=== PATIENT | male | born 1985 | race Caucasian/White ===

== ENCOUNTER 2018-06-21 18:51 | Emergency (ER) | payer OTHER ==
[2018-06-21 18:57] VITALS: RESP 18
[2018-06-21] MEDS ORDERED: LIDOCAINE 1% INJ 10MG/ML (20 ML MDV) SQ STA (19:01)
--- NOTE | 2018-06-21 19:18 | XR ---
EXAMINATION TYPE: XR hand complete LT DATE OF EXAM: 06/21/2018 COMPARISON: NONE HISTORY: Pain and lacerations TECHNIQUE: 3 views FINDINGS: Metacarpals are intact. I see no fracture nor dislocation. Joint spaces are normal. IMPRESSION: Normal left hand. No evidence of foreign body.
--- NOTE | 2018-06-21 19:54 | ED ---
General Adult HPI - General Chief complaint: Wound/Laceration Stated complaint: Laceration-[facility] Time Seen by Provider: 06/21/18 19:01 Source: patient, RN notes reviewed, old records reviewed Mode of arrival: ambulatory Limitations: no limitations - History of Present Illness Initial comments: 32-year-old male patient upper and past medical history presents to the sustaining a laceration at work. Patient reports that a glass broke cutting the palmar aspect of the left hand in the mid hand region. Patient denies any other complaints. Patient states that he has full range of motion in hand. Patient states that tetanus updated within last 2 years. Systemic: Pt denies fatigue, myalgia, fever/chills, rash. Pt denies weakness, night sweats, weight loss. Neuro: Pt denies headache, visual disturbances, syncope or pre-syncope. HEENT: Pt denies ocular discharge or irritation, otalgia, rhinorrhea, pharyngitis or notable lymphadenopathy. Cardiopulmonary: Pt denies chest pain, SOB, heart palpitations, dyspnea on exertion. Abdominal/GI: Pt denies abdominal pain, n/v/d. : Pt denies dysuria, burning w/ urination, frequency/urgency. Denies new onset urinary or bowel incontinence. MSK: Pt denies myalgia, loss of strength or function in extremities. Neuro: Pt denies new onset weakness, paresthesias. - Related Data Allergies Allergy/AdvReac Type Severity Reaction Status Date / Time No Known Allergies Allergy Verified 06/21/18 18:57 Review of Systems ROS Statement: Those systems with pertinent positive or pertinent negative responses have been documented in the HPI. ROS Other: All systems not noted in ROS Statement are negative. Past Medical History Additional Past Medical History / Comment(s): blood clot left leg 2 year ago History of Any Multi-Drug Resistant Organisms: None Reported Past Surgical History: No Surgical Hx Reported Past Psychological History: No Psychological Hx Reported Smoking Status: Current every day smoker Past Alcohol Use History: None Reported Past Drug Use History: None Reported General Exam - General Exam Comments Initial Comments: Constitutional: NAD, AOX3, Pt has pleasant affect. HEENT: NC/AT, trachea midline, neck supple, no lymphadenopathy. Posterior pharynx non erythematous, without exudates. External ears appear normal, without discharge. Mucous membranes moist. Eyes PERRLA, EOM intact. There is no scleral icterus. No pallor noted. Cardiopulmonary: RRR, no murmurs, rubs or gallops, no JVD noted. Lungs CTAB in anterior and posterior bowles. No peripheral edema. Abdominal exam: Abdomen soft and non-distended. Abdomen non-tender to palpation in all 4 quadrants. Bowel sounds active in LLQ. No hepatosplenomegaly. No ecchymosis Neuro: CN II-XII grossly intact. No nuchal rigidity. MSK: 3 cm laceration noted and palmar aspect of mid hand region of left hand. Full range of motion hand. Sensation intact. Wound approximated with 6 simple interrupted nylon sutures. Patient tired procedure well. Wound vigorously irrigated with 1 L normal saline. No osseous or ligamentous involvement. No foreign body. No posterior calf tenderness bilaterally, homans sign negative bilaterally. Posterior tibialis and radial pulse +2 bilaterally. Sensation intact in upper and lower extremities. Full active ROM in upper and lower extremities, 5/5 stregnth. Limitations: no limitations Course Vital Signs 06/21/18 18:54 Temperature 98.5 F Pulse Rate 123 H Respiratory 18 Rate Blood Pressure 145/55 O2 Sat by Pulse 99 Oximetry Procedures - Laceration Laceration #1 Consent Obtained: verbal consent Indication: laceration Site: hand (Left) Size (cm): 3 Description: linear Depth: simple, single layer Anesthetic Used: lidocaine 1% Anesthesia Technique: local infiltration Amount (mls): 4 Pre-repair: wound explored, irrigated extensively (1L NS ), deep structures intact (no ligamentous or osseous involvment, no foreign body) Type of Sutures: nylon Size of Sutures: 5-0 Number of Sutures: 6 Technique: simple, interrupted Patient Tolerated Procedure: well, no complications Medical Decision Making - Medical Decision Making 32-year-old male patient upper and past medical history presents to the sustaining a laceration at work. Patient reports that a glass broke cutting the palmar aspect of the left hand in the mid hand region. Patient denies any other complaints. Patient states that he has full range of motion in hand. Patient states that tetanus updated within last 2 years. Pt VSS. afebrile. Physical exam displayed: 3 cm laceration noted and palmar aspect of mid hand region of left hand. Full range of motion hand. Sensation intact. Wound approximated with 6 simple interrupted nylon sutures. Patient tired procedure well. Wound vigorously irrigated with 1 L normal saline. No osseous or ligamentous involvement. No foreign body. Plain film of left handacute process. Patient discharged. Patient follow with primary care provider in 1-2 days. Patient returned ER physician worse in any way. Patient will monitor for signs symptoms of infection. Pt will return to ER for removal in 7-10 days. Case discussed with Dr. Bustillo. Disposition Clinical Impression: Laceration Disposition: HOME SELF-CARE Condition: Stable Instructions (If sedation given, give patient instructions): Laceration (ED) Additional Instructions: Patient to adhere to previously discussed treatment plan and will take medication(s) as directed. Patient to follow up with PCP in 1-2 days. Patient to return to ED if symptoms do not improve. Please return for suture removal: Hand: 7-10 days Face: 5 days Chest/abdomen: 12-14 days Extremities: 7-10 days Scalp: 7 days Eyebrow: 5-7 days Foot/sole: 12-14 days Please monitor for signs and symptoms of infection including: redness, warmth, drainage, discharge. Please return to ED if these signs or symptoms occur, new signs or symptoms develop or if condition worsens in anyway. Is patient prescribed a controlled substance at d/c from ED?: No Referrals: None,Stated [Primary Care Provider] - 1-2 days [facility] - 1-2 days
[2018-06-21 19:59] VITALS: BP 136/73; PULSE 76; TEMP 98
== END 2018-06-21 19:56 | disposition home or self-care (01) ==
LOC: EC 18:51
DX: S61.412A Laceration without foreign body of left hand, initial encounter (principal); F17.200 Nicotine dependence, unspecified, uncomplicated; W25.XXXA Contact with sharp glass, initial encounter; Y92.69 Other specified industrial and construction area as the place of occurrence of the external cause; Y99.0 Civilian activity done for income or pay
CPT/HCPCS: 99283; 12002; 73130; J2001

== ENCOUNTER → 2020-04-23 | Outpatient (CLI) | payer OTHER ==
[2020-04-23 08:53] LABS: Appearance,Urine Clear (Clear); Bilirubin,Urine Negative (Negative); Blood,Urine Negative (Negative); Color,Urine Light Yellow; Glucose,Urine (UA) Negative (Negative); Ketones,Urine Negative (Negative); Leukocyte Esterase,Urine Negative (Negative); Nitrite,Urine Negative (Negative); Protein,Urine Negative (Negative); Specific Gravity,Urine 1.008 (1.001-1.035); Urobilinogen,Urine <2.0 mg/dL (<2.0)
[2020-04-23 10:59] LABS: Basophils # (A) 0.03 X 10*3/uL (0.00-0.10); Basophils % (A) 0.5 %; Eosinophils # (A) 0.28 X 10*3/uL (0.04-0.35); HCT 45.2 % (39.6-50.0); Lymphocytes # (A) 2.01 X 10*3/uL (0.90-5.00); Lymphocytes % (A) 36.2 %; MCH 30.2 pg (27.0-32.0); MCHC 33.2 g/dL (32.0-37.0); MCV 91.1 fL (80.0-97.0); Mean Platelet Volume 10.3 fL (9.5-12.2); Monocytes # (A) 0.58 X 10*3/uL (0.20-1.00); Monocytes % (A) 10.5 %; Neutrophils # (A) 2.64 X 10*3/uL (1.80-7.70); Neutrophils % (A) 47.6 %; Platelet Count 316 X 10*3/uL (140-440); RBC 4.96 X 10*6/uL (4.40-5.60); RDW 13.2 % (11.5-14.5); WBC 5.55 X 10*3/uL (4.50-10.00)
[2020-04-23 12:25] LABS: Erythrocyte Sedimentation Rate 2 mm/Hr (0-15)
[2020-04-23 16:07] LABS: Anti-DNA, DS unit <1.0 IU/mL; DNA Double-Stranded NEGATIVE (NEGATIVE)
[2020-04-23 19:47] LABS: ALT 26 U/L (10-49); AST 22 U/L (14-35); African American GFR (CKD) 100.3 (60.0-200.0); Alkaline Phosphatase 47 U/L (41-126); C Reactive Protein <0.4 mg/dL (0.0-0.8); Calcium 9.4 mg/dL (8.7-10.3); Carbon Dioxide 25.3 mmol/L (21.6-31.8); Chloride 109 mmol/L (96-109); Chol/HDL Ratio 3.34; Cholesterol 137 mg/dL (0-200); Globulin 2.5 g/dL (1.6-3.3); Glucose 76 mg/dL (70-110); LDL Cholesterol,Calculated 81.2 mg/dL (0.0-131.0); Non-African American GFR(CKD) 86.5 (60.0-200.0); Potassium 4.2 mmol/L (3.5-5.5); Sodium 139 mmol/L (135-145); Total Bilirubin 0.6 mg/dL (0.3-1.2); Total Protein 6.5 g/dL (6.2-8.2)
[2020-04-24 00:17] LABS: Creatine Kinase 312 U/L (35-257)
== END | disposition home or self-care (01) ==
LOC: LABWHC1 08:06
PROVIDERS: ATTEND Internal Medicine
DX: E78.5 Hyperlipidemia, unspecified (principal); I10 Essential (primary) hypertension; E87.8 Other disorders of electrolyte and fluid balance, not elsewhere classified; R80.9 Proteinuria, unspecified
CPT/HCPCS: 36415; 80053; 80061; 81003; 82306; 82550; 84443; 85025; 85652; 86140; 86225

== ENCOUNTER → 2020-09-23 | Outpatient (CLI) | payer OTHER ==
--- NOTE | 2020-09-23 14:11 | XR ---
EXAM TYPE: LUMBAR SPINE X RAY SERIES COMPARISON: NONE HISTORY: Pain TECHNIQUE: 4 views are submitted. FINDINGS: Alignment is anatomic. The pedicles are intact. The transverse processes are intact. There is no s pondylolysis or spondylolisthesis. Curvature of the spine degenerative disc disease L4-L5 and L5-S1 mild hypertrophic spurring anteriorly L3-4 and L2-L3. IMPRESSION: 1. Mild multilevel degenerative disc disease correlate with MRI as warranted..
== END | disposition home or self-care (01) ==
LOC: RADXRMAIN 11:58
PROVIDERS: ATTEND Internal Medicine
DX: M51.36 Other intervertebral disc degeneration, lumbar region (principal)
CPT/HCPCS: 72110

== ENCOUNTER 2023-12-12 20:21 | Observation (INO) | payer OTHER ==
[2023-12-12] MEDS ORDERED: LORazepam 2 MG/ML INJ IV PRN (20:59)
--- NOTE | 2023-12-12 21:01 | ED ---
Alcohol HPI - General Chief Complaint: Alcohol Stated Complaint: ETOH Time Seen by Provider: 12/12/23 21:00 Source: patient, RN notes reviewed Mode of arrival: ambulatory Limitations: no limitations - History of Present Illness Initial Comments: 38-year-old male presented to ER with a chief complaint of alcohol intoxication. Patient states he typically drinks 1 pint a day. He states he drank 1 pint earlier today and last drink approximately 5 hours ago. He states he would like to enter rehab at this time. Patient does report a history of tremors with withdrawal. He is unsure about seizures. He does mention he used cocaine a couple of weeks ago. Patient denies any chest pain or shortness of breath. He is complaining of generalized abdominal pain. No diarrhea, constipation, nausea or vomiting. Patient reports he is currently very anxious and feels like he is crawling out of his skin. No other complaints. - Related Data Allergies Allergy/AdvReac Type Severity Reaction Status Date / Time No Known Allergies Allergy Verified 12/12/23 20:40 Review of Systems ROS Statement: Those systems with pertinent positive or pertinent negative responses have been documented in the HPI. ROS Other: All systems not noted in ROS Statement are negative. Past Medical History Additional Past Medical History / Comment(s): blood clot left leg 2 year ago History of Any Multi-Drug Resistant Organisms: None Reported Past Surgical History: No Surgical Hx Reported Past Psychological History: Anxiety Smoking Status: Current every day smoker Past Alcohol Use History: Abuse, Daily, Heavy Past Drug Use History: Cocaine General Exam Limitations: no limitations General appearance: alert, in no apparent distress, anxious Respiratory exam: Present: normal lung sounds bilaterally. Absent: respiratory distress, wheezes, rales, rhonchi, stridor Cardiovascular Exam: Present: normal rhythm, tachycardia, normal heart sounds GI/Abdominal exam: Present: soft, normal bowel sounds. Absent: distended, tenderness, guarding, rebound, rigid Neurological exam: Present: alert, oriented X3, CN II-XII intact Skin exam: Present: warm, dry, intact, normal color. Absent: rash Course Vital Signs 12/12/23 12/12/23 12/12/23 20:37 21:13 22:28 Temperature 98.3 F Pulse Rate 158 H 116 H 124 H Respiratory 18 14 17 Rate Blood Pressure 135/94 145/109 138/92 O2 Sat by Pulse 96 95 95 Oximetry - Reevaluation(s) Reevaluation #1: 12/12/23 23:[address] Krause for admission. Medical Decision Making - Medical Decision Making Was pt. sent in by a medical professional or institution (, LUISANA, DIRECTOR OF AVIATION, urgent care, hospital, or correction...) When possible be specific @ -No Did you speak to anyone other than the patient for history (EMS, parent, family, police, friend...)? What history was obtained from this source @ -No Did you review nursing and triage notes (agree or disagree)? Why? @ -I reviewed and agree with nursing and triage notes Were old charts reviewed (outside hosp., previous admission, EMS record, old EKG, old radiological studies, urgent care reports/EKG's, correction records)? Report findings @ -No old charts were reviewed Differential Diagnosis (chest pain, altered mental status, abdominal pain women, abdominal pain men, vaginal bleeding, weakness, fever, dyspnea, syncope, headache, dizziness, GI bleed, back pain, seizure, CVA, palpatations, mental health, musculoskeletal)? @ -Differential Seizure:Recurrent seizure disorder, febrile seizure, alcohol withdrawal, stimulants, meningitis, encephalitis, intercranial hemorrhage, intracranial tumor, stroke, eclampsia, thyrotoxicosis, hypocalcemia, hyponatremia, hypernatremia, hypomagnesemia, psychogenic, this is not meant to be an all-inclusive list. EKG interpreted by me (3pts min.). @ -None done X-rays interpreted by me (1pt min.). @ -None done CT interpreted by me (1pt min.). @ -None done U/S interpreted by me (1pt. min.). @ -None done What testing was considered but not performed or refused? (CT, X-rays, U/S, labs)? Why? @ -None What meds were considered but not given or refused? Why? @ -None Did you discuss the management of the patient with other professionals (professionals i.e. , LUISANA, DIRECTOR OF AVIATION, lab, RT, psych nurse, criminal justice social worker, soaking tank worker, teacher, [place] police officer, family service caseworker)? Give summary @ -Yes, case discussed with Dr. Krause for admission. Was smoking cessation discussed for >3mins.? @ -No Was critical care preformed (if so, how long)? @ -No Were there social determinants of health that impacted care today? How? (Homelessness, low income, unemployed, alcoholism, drug addiction, transportation, low edu. Level, literacy, decrease access to med. care, custodial, rehab)? @ -No Was there de-escalation of care discussed even if they declined (Discuss DNR or withdrawal of care, Hospice)? DNR status @ -No What co-morbidities impacted this encounter? (DM, HTN, Smoking, COPD, CAD, Cancer, CVA, ARF, Chemo, Hep., AIDS, mental health diagnosis, sleep apnea, morbid obesity)? @ -Alcoholism Was patient admitted / discharged? Hospital course, mention meds given and route, prescriptions, significant lab abnormalities, going to OR and other pertinent info. @ -Admitted. 38-year-old male presented to ER with a chief complaint of alcohol intoxication. Patient reports a history of tremors with withdrawal unsure if he has had a seizure. Last drink was approximately 5 hours ago. He typically drinks a pint a day.Vitals upon arrival remarkable for temperature 98.3, tachycardic 158, respiratory rate 18, blood pressure 135/94, oxygen saturation 96% on room air. Patient in no signs of acute distress but is extremely anxious on exam. Exam benign. Laboratory studies obtained showing a serum alcohol of 420 with associated elevation of LFTs (AST 100, ALT 63). Lac tic acid 4.9 which is likely due to dehydration and vomiting. Otherwise labs unremarkable. CIWA 10. Patient started on CIWA and Ativan protocol. Patient received 2 L IV fluids in the ER. Admission considered and discussed with Dr. Krause for alcohol intoxication and help with entering rehab. Social work and case management on consult. Patient is agreeable to this. Patient admitted in stable condition. Case discussed with ED attending, Dr. Diaz. Undiagnosed new problem with uncertain prognosis? @ -No Drug Therapy requiring intensive monitoring for toxicity (Heparin, Nitro, Insulin, Cardizem)? @ -No Were any procedures done? @ -No Diagnosis/symptom? @ -Alcohol intoxication Acute, or Chronic, or Acute on Chronic? @ -Acute Uncomplicated (without systemic symptoms) or Complicated (systemic symptoms)? @ -Complicated Side effects of treatment? @ -No Exacerbation, Progression, or Severe Exacerbation? @ -No Poses a threat to life or bodily function? How? (Chest pain, USA, SD, pneumonia, PE, COPD, DKA, ARF, appy, cholecystitis, CVA, Diverticulitis, Homicidal, Suicidal, threat to staff... and all critical care pts) @ -Yes, alcohol withdrawal can lead to seizures. - Lab Data Result diagrams: 12/12/23 21:00 12/12/23 21:00 Lab Results 12/12/23 12/12/23 12/12/23 Range/Units 21:00 21:00 21:00 WBC 7.0 (3.8-10.6) k/uL RBC 5.81 (4.30-5.90) m/uL Hgb 17.0 (13.0-17.5) gm/dL Hct 51.6 (39.0-53.0) % MCV 88.8 (80.0-100.0) fL MCH 29.3 (25.0-35.0) pg MCHC 33.0 (31.0-37.0) g/dL RDW 14.3 (11.5-15.5) % Plt Count 247 (150-450) k/uL MPV 6.8 Neutrophils % 54 % Lymphocytes % 34 % Monocytes % 5 % Eosinophils % 1 % Basophils % 1 % Neutrophils # 3.8 (1.3-7.7) k/uL Lymphocytes # 2.4 (1.0-4.8) k/uL Monocytes # 0.4 (0-1.0) k/uL Eosinophils # 0.1 (0-0.7) k/uL Basophils # 0.1 (0-0.2) k/uL Sodium 145 (137-145) mmol/L Potassium 3.9 (3.5-5.1) mmol/L Chloride 107 (98-107) mmol/L Carbon Dioxide 19 L (22-30) mmol/L Anion Gap 19 mmol/L BUN 12 (9-20) mg/dL Creatinine 0.96 (0.66-1.25) mg/dL Est GFR (CKD-EPI)AfAm >90 (>60 ml/min/1.73 sqM) Est GFR (CKD-EPI)NonAf >90 (>60 ml/min/1.73 sqM) Glucose 97 (74-99) mg/dL Plasma Lactic Acid Johnny 4.9 H* (0.7-2.0) mmol/L Calcium 8.8 (8.4-10.2) mg/dL Magnesium (1.6-2.3) mg/dL Total Bilirubin 0.8 (0.2-1.3) mg/dL AST 100 H (17-59) U/L ALT 63 H (4-49) U/L Alkaline Phosphatase 99 (38-126) U/L Total Protein 7.8 (6.3-8.2) g/dL Albumin 4.9 (3.5-5.0) g/dL Amylase 51 (30-110) U/L Lipase 268 (23-300) U/L Serum Alcohol 420 H* mg/dL 12/12/23 Range/Units 21:00 WBC (3.8-10.6) k/uL RBC (4.30-5.90) m/uL Hgb (13.0-17.5) gm/dL Hct (39.0-53.0) % MCV (80.0-100.0) fL MCH (25.0-35.0) pg MCHC (31.0-37.0) g/dL RDW (11.5-15.5) % Plt Count (150-450) k/uL MPV Neutrophils % % Lymphocytes % % Monocytes % % Eosinophils % % Basophils % % Neutrophils # (1.3-7.7) k/uL Lymphocytes # (1.0-4.8) k/uL Monocytes # (0-1.0) k/uL Eosinophils # (0-0.7) k/uL Basophils # (0-0.2) k/uL Sodium (137-145) mmol/L Potassium (3.5-5.1) mmol/L Chloride (98-107) mmol/L Carbon Dioxide (22-30) mmol/L Anion Gap mmol/L BUN (9-20) mg/dL Creatinine (0.66-1.25) mg/dL Est GFR (CKD-EPI)AfAm (>60 ml/min/1.73 sqM) Est GFR (CKD-EPI)NonAf (>60 ml/min/1.73 sqM) Glucose (74-99) mg/dL Plasma Lactic Acid Johnny (0.7-2.0) mmol/L Calcium (8.4-10.2) mg/dL Magnesium 2.0 (1.6-2.3) mg/dL Total Bilirubin (0.2-1.3) mg/dL AST (17-59) U/L ALT (4-49) U/L Alkaline Phosphatase (38-126) U/L Total Protein (6.3-8.2) g/dL Albumin (3.5-5.0) g/dL Amylase (30-110) U/L Lipase (23-300) U/L Serum Alcohol mg/dL Disposition Clinical Impression: Alcohol intoxication Disposition: ADMITTED IP TO THIS HOSP Condition: Stable Referrals: None,Stated [Primary Care Provider] - 1-2 days Time of Disposition: 23:01
[2023-12-12] MEDS: LORazepam 2 MG/ML INJ IV PRN ×2 (21:02→22:55)
[2023-12-12] MEDS: SODIUM CHLORIDE 0.9% 1,000 ML IV STA ×2 (21:02→22:27)
[2023-12-12] MEDS: THIAMINE 100 MG/ML 2 ML VIAL IM STA (21:12)
[2023-12-12 21:31] LABS: Basophils # (A) 0.1 k/uL (0-0.2); Basophils % (A) 1 %; Eosinophils # (A) 0.1 k/uL (0-0.7); Eosinophils % (A) 1 %; HCT 51.6 % (39.0-53.0); Lymphocytes # (A) 2.4 k/uL (1.0-4.8); Lymphocytes % (A) 34 %; MCH 29.3 pg (25.0-35.0); MCV 88.8 fL (80.0-100.0); Mean Platelet Volume 6.8; Monocytes # (A) 0.4 k/uL (0-1.0); Monocytes % (A) 5 %; Neutrophils # (A) 3.8 k/uL (1.3-7.7); Neutrophils % (A) 54 %; Platelet Count 247 k/uL (150-450); RBC 5.81 m/uL (4.30-5.90); RDW 14.3 % (11.5-15.5)
[2023-12-12] MEDS ORDERED: ONDANSETRON 4 MG/2 ML VIAL IVP PRN ×2 (21:46→22:53)
[2023-12-12 21:52] LABS: ALT 63 U/L (4-49); AST 100 U/L (17-59); African American GFR (CKD) >90 (>60 ml/min/1.73 sqM); Albumin 4.9 g/dL (3.5-5.0); Alkaline Phosphatase 99 U/L (38-126); Amylase 51 U/L (30-110); Anion Gap 19 mmol/L; Blood Urea Nitrogen 12 mg/dL (9-20); Calcium 8.8 mg/dL (8.4-10.2); Carbon Dioxide 19 mmol/L (22-30); Chloride 107 mmol/L (98-107); Glucose 97 mg/dL (74-99); Lipase 268 U/L (23-300); Non-African American GFR(CKD) >90 (>60 ml/min/1.73 sqM); Potassium 3.9 mmol/L (3.5-5.1); Sodium 145 mmol/L (137-145); Total Bilirubin 0.8 mg/dL (0.2-1.3); Total Protein 7.8 g/dL (6.3-8.2)
[2023-12-12 22:20] LABS: Alcohol 420 mg/dL
[2023-12-12] MEDS ORDERED: NALOXONE 0.4 MG/ML 1 ML VIAL IV PRN (22:53)
[2023-12-12] MEDS ORDERED: IBUPROFEN 400 MG TAB PO PRN (22:53)
[2023-12-12 23:14] LABS: Amphetamine Screen,Urine Not Detected (NotDetected); Barbiturate Screen,Urine Not Detected (NotDetected); Benzodiazepines Screen,Urine Detected (NotDetected); Cocaine Screen,Urine Not Detected (NotDetected); Methadone Screen, Urine Not Detected (NotDetected); Opiate Screen,Urine Not Detected (NotDetected); Oxycodone Screen, Urine Not Detected (NotDetected); Phencyclidine Screen,Urine Not Detected (NotDetected); Tricyclic Antidepressant,Urine Not Detected (NotDetected); Urn Cannabinoid Scrn Not Detected (NotDetected)
[2023-12-13] MEDS: SODIUM CHLORIDE 0.9% 1,000 ML IV SCH (01:39)
--- NOTE | 2023-12-13 12:28 | HP ---
HISTORY AND PHYSICAL HISTORY OF PRESENT ILLNESS: This patient came to the hospital with alcohol intoxication, 38 years old. He drinks a pint a day. Five hours prior to admission, he drank wine, he was supposed to go to rehab. They sent him here because he has considerable seizures and alcohol withdrawal and cocaine a couple weeks ago. Denied any chest pain, shortness of breath. Denies abdominal pain, diarrhea, constipation, nausea, vomiting. Currently, very anxious, feels like he is . ALLERGIES: Negative. REVIEW OF SYSTEMS: 14-point review of systems otherwise negative except for mild tremor plus medical history of blood clot 2 years ago in the leg, anxiety, current everyday smoker, heavy alcohol abuse, cocaine in the past. PHYSICAL EXAMINATION: NEUROLOGIC: Mild tremor. Cranial nerves are intact. Alert and oriented x3, generalized appearance. GI: Mild tenderness. No guarding. No fluid wave. HEART: S1, S2. Tachycardic. LUNGS: Transmitted upper sounds, mostly clear. VITAL SIGNS: Temp 98.3, pulse 120s to 150s, blood pressure is 130s to 140s over 90s to 100s, O2 95-96, respiratory rate 16-18. LABORATORY DATA: Reviewed. Hemoglobin 17, hematocrit 51. Serum alcohol is 420. Continue current treatment. WA protocol. Possibly get a psych consult if necessary. Prognosis guarded. MMODL / IJN: [id number] /
[2023-12-13] MEDS: cloNIDine HCL 0.1 MG TAB PO SCH (15:02)
[2023-12-13] MEDS: NICOTINE 21MG/24HR PATCH TRANSDERM SCH (15:02)
[2023-12-13] MEDS: NALTREXONE HCL 50 MG TAB PO SCH (15:47)
[2023-12-13] MEDS: MELATONIN 3 MG TABLET PO SCH (20:31)
[2023-12-14 08:45] LABS: ALT 40 U/L (10-49); AST 58 U/L (14-35); Albumin 3.6 g/dL (3.8-4.9); Alkaline Phosphatase 63 U/L (41-126); BUN/Creat Ratio 13.57 Ratio (12.00-20.00); Blood Urea Nitrogen 9.5 mg/dL (9.0-27.0); Calcium 8.4 mg/dL (8.7-10.3); Carbon Dioxide 23.4 mmol/L (21.6-31.8); Chloride 105 mmol/L (96-109); Glucose 100 mg/dL (70-110); Potassium 3.6 mmol/L (3.5-5.5); Sodium 139 mmol/L (135-145); Total Bilirubin 0.7 mg/dL (0.3-1.2); Total Protein 5.6 g/dL (6.2-8.2)
[2023-12-14 08:48] LABS: Basophils # (A) 0.01 X 10*3/uL (0.00-0.10); Basophils % (A) 0.2 %; Eosinophils # (A) 0.08 X 10*3/uL (0.04-0.35); Eosinophils % (A) 1.6 %; HCT 38.4 % (39.6-50.0); HGB 13.1 g/dL (13.0-17.0); Lymphocytes # (A) 1.06 X 10*3/uL (0.90-5.00); Lymphocytes % (A) 21.4 %; MCH 29.3 pg (27.0-32.0); MCHC 34.1 g/dL (32.0-37.0); MCV 85.9 FL (80.0-97.0); Mean Platelet Volume 8.9 FL (9.5-12.2); Monocytes # (A) 0.36 X 10*3/uL (0.20-1.00); Monocytes % (A) 7.3 %; NRBC Per 100 WBC 0 X 10*3/uL (0.00-0.01); Neutrophils # (A) 3.44 X 10*3/uL (1.80-7.70); Neutrophils % (A) 69.3 %; Platelet Count 135 X 10*3/uL (140-440); RBC 4.47 X 10*6/uL (4.40-5.60); WBC 4.96 X 10*3/uL (4.50-10.00)
--- NOTE | 2023-12-14 13:06 | P.CN ---
Psychiatric Consult - . 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 Patient reports drinking 1 pint per day and was exhibiting withdrawal symptoms. Patient was placed on CIWA protocol. Patient seen and evaluated at bedside. He reports predominate withdrawal symptoms including anxiety and tremors. He states he does not drink all the time but when he does he usually binges for weeks at a time. He states seeing a psychiatrist at [facility] and he was recently prescribed Lexapro however he stopped this medication so that he was able to drink. He did feel like that medication was helpful for his anxiety however given his ongoing withdrawal symptoms he would prefer to defer re-starting this medication outpatient as he has an upcoming appointment at the end of the month with his psychiatrist. He is exhibiting severe anxiety right now however he denied any cravings due to being on naltrexone. He states he has gone to rehab before however he did not find it helpful. Patient was given a list of local resources for counseling and substance abuse and patient was strongly encouraged to consider inpatient or outpatient substance abuse help. Patient was encouraged to obtain a sponsor and go to AA meetings. At this time patient denies any suicidal or homicidal ideations, intent or plan. Patient denies any auditory, visual hallucinations and denies any paranoia or delusions. PAST PSYCHIATRIC HISTORY: Patient has a a history of depression and anxiety. Patient denies being on any psychiatric medications however most recently was prescribed Lexapro however he self discontinued this medication due to his alcohol use. Patient denies any previous psychiatric hospitalizations. Patient sees a psychiatrist at [facility]. Patient denies any history of suicide attempts in the past. PAST MEDICAL HISTORY: Denies. ALLERGIES: as per EMR. CHEMICAL DEPENDENCY HISTORY: as per HPI. SOCIAL HISTORY: Patient is single and lives alone. 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 Patient appears to have fair hygiene and grooming wearing hospital gown with fair eye contact. Behavior: Patient is calmly lying in bed without any agitated behavior. Patient did appear anxious Speech: Patient's speech is fluent and nonpressured. Mood/Affect: Patient reports their mood is "alright", affect is congruent Suicidality/Homicidality: Patient denies having any suicidal or homicidal ideation intent or plan. Perceptions: Patient denies any visual hallucinations and denies any auditory hallucinations Though content/process: There is no evidence of any delusional thought content and thought process is linear and goal-directed. Memory and concentration: AOX3, grossly intact for the purposes of this session. Can spell "WORLD" backwards Judgment and insight: Poor IMPRESSIONS: Alcohol use disorder, severe in withdrawal Anxiety, unspecified PLAN: -Would recommend the following medication changes/additions: Add gabapentin 300 mg at bedtime for anxiety/sleep related to withdrawal symptoms and continue naltrexone 50 mg for cravings -CIWA protocol with PRN Ativan for alcohol withdrawal. Continue to monitor vital signs. -pony worker to provide patient with outpatient mental health/psychiatry resources for appropriate follow up upon discharge -Electrogalvanizing Machine Operator spoke with patient about substance abuse and the harmful effects on medical and mental health, patient verbally understood and agreed. -pony worker to provide patient substance use treatment resources including AA/NA meetings in the community. -pony worker to provide patient with access line number to call for inpatient substance rehab -Psychiatry will sign off at this time -Please contact with any questions.
[2023-12-14] MEDS: GABAPENTIN 300 MG CAP PO SCH (20:58)
--- NOTE | 2023-12-15 03:40 | PN ---
PROGRESS NOTE SUBJECTIVE: A 38-year-old alcoholic male, who is doing better with naltrexone for alcohol suppression. Started him on inhaler for asthma, COPD, continues to do better. Possibly we will have to send him home on some Librium or some BuSpar. OBJECTIVE: CARDIOVASCULAR: S1, S2. LUNGS: Transmitted upper sounds. GI: Soft. HEMATOLOGY: Negative Homans. PSYCH: Fair mood and affect. Tremors, mild to moderate. Continue with CIWA protocol. Prognosis guarded. Ambulate as tolerated. Psychiatrist ordered Neurontin at night, Catapres for p.r.n. hypertension, Habitrol for nicotine addiction. Prognosis guarded. Follow up in the next 24 to 48 hours. MMODL / IJN: [id number] /
[2023-12-15] MEDS: THIAMINE 100 MG TAB PO SCH (08:52)
--- NOTE | 2023-12-15 19:27 | P.PN ---
Subjective This is a pleasant 38 years old male with past medical history of alcohol use disorder, presents with alcohol use problems and intoxication and withdrawal. He also he has depression but denies suicidal ideation He was evaluated by psychiatrist and recommended to treat him medically for alcohol withdrawal. His CIWA score is still high Today patient was still feeling anxious with tremor and not feeling comfortable Also has some stomach upset Objective - Vital Signs Vital signs: Vital Signs Temp 97.8 F 12/15/23 12:49 Pulse 83 12/15/23 12:49 Resp 16 12/15/23 12:49 BP 121/69 12/15/23 12:49 Pulse Ox 97 12/15/23 12:49 FiO2 Intake & Output 12/14/23 12/15/23 12/15/23 18:59 06:59 18:59 Intake Total 1080 825 Balance 1080 825 Intake: Intake, IV Titration 825 Amount Sodium Chloride 0.9% 1, 825 000 ml @ 75 mls/hr IV . [id number] DOM Rx#:[id number] Oral 1080 Other: # Voids 1 - Exam GENERAL: The patient is alert and oriented x3, not in any acute distress. Well developed, well nourished. HEENT: Pupils are round and equally reacting to light. EOMI. No scleral icterus. No conjunctival pallor. Normocephalic, atraumatic. No pharyngeal erythema. No thyromegaly. CARDIOVASCULAR: S1 and S2 present. No murmurs, rubs, or gallops. PULMONARY: Chest is clear to auscultation, no wheezing , no crackles. ABDOMEN: Soft, nontender, nondistended, normoactive bowel sounds. No palpable organomegaly. MUSCULOSKELETAL: No joint swelling or deformity. EXTREMITIES: No cyanosis, clubbing, or pedal edema. NEUROLOGICAL: Gross neurological examination did not reveal any focal deficits. SKIN: No rashes. no petechiae. - Labs CBC & Chem 7: 12/14/23 06:21 12/14/23 06:21 Assessment and Plan Assessment: Alcohol use disorder Depression without suicidal ideation Alcohol withdrawal Mild epigastric discomfort could be alcoholic gastritis Plan: Continue with CIWA protocol Continue with thiamine Psychiatry start the patient on gabapentin Clonidine to help with blood pressure and alcohol withdrawal GI prophylaxis Pepcid DVT prophylaxis Protonix
[2023-12-16 13:33] VITALS: BP 119/84; PULSE 84; RESP 20; TEMP 98.2
--- NOTE | 2023-12-17 02:19 | P.DS ---
Providers Date of admission: 12/12/23 22:29 Attending physician: Maurice Krause Consults: 12/13/23 14:25 Consult Physician Routine Consulting Provider: Psychiatry - [facility] Psychiatry Consult Reason/Comments: depression, alcohol withdrawal Do you want consulting provider notified?: Yes Primary care physician: Stated None Hospital Course: Diagnoses: Alcohol use disorder Depression without suicidal ideation Alcohol withdrawal Mild epigastric discomfort could be alcoholic gastritis Hospital course: This is a pleasant 38 years old male with past medical history of alcohol use disorder, presents with alcohol use problems and intoxication and withdrawal. He also he has depression but denies suicidal ideation He was evaluated by psychiatrist and recommended to treat him medically for alcohol withdrawal. His CIWA score is still high on admission but improved with treatment at the day of discharge it was 0 most of the time. Today he received only one-time dose of Ativan at 3:00 in the morning. Patient feels he can be discharged as well Problems and management plan were discussed with the patient and he verbalized understanding and acceptance Patient was found stable and can be discharged home in guarded prognosis however he needs follow-up as an outpatient. Patient was instructed to follow up with PCP within one week and patient agrees Patient was counseled about quitting alcohol and smoking and he agrees to try Physical exam Gen: patient is a AAOx3, no distress CVS: S1-S2, RRR, no murmur Lungs: B/L CTA, no wheezing Abdomen: soft, no distention, no tenderness, positive bowel sounds Extremity: no leg edema or induration Time spent more than 35 minutes Patient Condition at Discharge: Stable Plan - Discharge Summary Discharge Rx Participant: No New Discharge Prescriptions: New Nicotine 21Mg/24Hr Patch [Habitrol] 1 patch TRANSDERM DAILY #3 patch Thiamine [Vitamin B-1] 100 mg PO DAILY #30 tab Melatonin 6 mg PO HS #30 tab No Action No Known Home Medications Discharge Medication List No Known Home Medications 12/13/23 [History] Melatonin 6 mg PO HS #30 tab 12/16/23 [Rx] Nicotine 21Mg/24Hr Patch [Habitrol] 1 patch TRANSDERM DAILY #3 patch 12/16/23 [Rx] Thiamine [Vitamin B-1] 100 mg PO DAILY #30 tab 12/16/23 [Rx] Follow up Appointment(s)/Referral(s): Maurice Krause MD [STAFF PHYSICIAN] - 1 Week None,Stated [Primary Care Provider] - 1-2 days Patient Instructions/Handouts: Thiamine (By mouth), Nicotine (Absorbed through the skin), Melatonin (By mouth) Activity/Diet/Wound Care/Special Instructions: regular diet activity as tolerated Discharge/Stand Alone Forms: AA Meetings [facility], [facility], Outpatient Counseling, In Substance Abuse Facilities Discharge Disposition: HOME SELF-CARE
== END 2023-12-16 16:30 | disposition home or self-care (01) ==
LOC: EC 20:21 → 5NMEDONC 22:29
PROVIDERS: ADMIT Family Medicine; ATTEND Family Medicine
DX: F10.229 Alcohol dependence with intoxication, unspecified (principal); F10.239 Alcohol dependence with withdrawal, unspecified; F41.9 Anxiety disorder, unspecified; F32.A Depression, unspecified; T43.226A Underdosing of selective serotonin reuptake inhibitors, initial encounter; Z91.128 Patient's intentional underdosing of medication regimen for other reason; J44.89 Other specified chronic obstructive pulmonary disease; R74.01 Elevation of levels of liver transaminase levels; K30 Functional dyspepsia; F14.90 Cocaine use, unspecified, uncomplicated; F17.200 Nicotine dependence, unspecified, uncomplicated
CPT/HCPCS: 96376 ×6; 96361 ×5; 96372; 96374; 99284; 36415; 80053 ×2; 82150; 83605 ×2; 83690; 83735 ×2; 85025 ×2; 80306; 80320; G0378 ×5; S4990 ×2; J2060 ×5; J3411